=== PATIENT | female | born 1985 | race Caucasian/White ===

== ENCOUNTER → 2021-04-13 | Outpatient (CLI) | payer OTHER ==
[2021-04-13 16:00] LABS: BASO # 0.1 10^3/uL (0.0-0.2); BASO % 0.9 % (0.0-1.0); EOS # 0.3 10^3/uL (0.0-0.5); EOS % 3.8 % (0.0-3.0); HEMATOCRIT 41.8 % (36.0-47.0); HEMOGLOBIN 13.4 g/dl (12.0-15.5); LYMPH # 1.8 10^3/uL (1.5-5.0); LYMPH % 26.2 % (24.0-44.0); MEAN CORPUSCULAR HEMOGLOBIN 28.9 pg (27.0-33.0); MEAN CORPUSCULAR HGB CONC 32.1 g/dl (32.0-36.5); MEAN CORPUSCULAR VOLUME 90.3 fl (80.0-96.0); MONO # 0.5 10^3/uL (0.0-0.8); MONO % 7.7 % (2.0-8.0); NEUTROPHILS # 4.2 10^3/uL (1.5-8.5); NEUTROPHILS % 61.1 % (36.0-66.0); PLATELET COUNT, AUTOMATED 202 10^3/uL (150-450); RED BLOOD COUNT 4.63 10^6/uL (4.00-5.40); WHITE BLOOD COUNT 6.9 10^3/uL (4.0-10.0)
[2021-04-13 16:35] LABS: ALBUMIN 4.3 GM/DL (3.2-5.2); ALT/SGPT 26 U/L (12-78); BILIRUBIN,TOTAL 0.3 MG/DL (0.2-1.0); BLOOD UREA NITROGEN 11 MG/DL (7-18); CALCIUM LEVEL 9.9 MG/DL (8.5-10.1); CARBON DIOXIDE LEVEL 28 MEQ/L (21-32); CHLORIDE LEVEL 108 MEQ/L (98-107); CREATININE FOR GFR 0.75 MG/DL (0.55-1.30); FREE T4 1.09 NG/DL (0.76-1.46); GLOMERULAR FILTRATION RATE > 60.0 (>60); GLUCOSE, FASTING 107 MG/DL (70-100); POTASSIUM SERUM 4.2 MEQ/L (3.5-5.1); SODIUM LEVEL 142 MEQ/L (136-145); TOTAL PROTEIN 7.6 GM/DL (6.4-8.2)
--- NOTE | 2021-04-13 17:29 | REP ---
INDICATION: COCCYX PAIN COMPARISON: None. TECHNIQUE: AP and lateral views of the sacrum and coccyx. FINDINGS: Lateral view demonstrates acute angulation at the level of the distal coccyx which is nonspecific and should be correlated with point of tenderness. Findings may represent old injury. The remainder of the examination appears relatively normal/age-appropriate. IMPRESSION: Acute angulation at the distal coccyx may represent subtle subluxation/injury.. <Electronically signed by Kelton Groves > 04/13/21 [id number]
== END ==
LOC: M WUC 10:37
PROVIDERS: ATTEND Student in an Organized Health Care Education/Training Program
DX: Z00.00 Encounter for general adult medical examination without abnormal findings (principal); M53.3 Sacrococcygeal disorders, not elsewhere classified; R53.83 Other fatigue

== ENCOUNTER → 2021-05-15 | Outpatient (CLI) | payer OTHER ==
--- NOTE | 2021-05-17 08:37 | REP ---
INDICATION: SACROCOCCYGEAL DISORDER, NOT CLASSIFIED. COMPARISON: Radiographs 04/13/2021. TECHNIQUE: Multiple sequences of the sacrum and coccyx in the axial, coronal and sagittal plane. FINDINGS: There is no evidence of bone marrow edema. There is no occult fracture. There is no evidence of sacroiliitis. No bone lesion is seen. Within the visualized pelvis there is no evidence of adenopathy. The uterus is retroverted with a length of approximately 8 cm. The endometrial thickness is approximately 8 mm. The junctional zone appears intact. There is a cystic structure of the left ovary having a maximum diameter of 2.7 cm. There is trace free fluid adjacent to the left ovary. IMPRESSION: No MRI abnormality of the sacrum or coccyx. Small left ovarian cyst measures 2.7 cm with trace adjacent free fluid. <Electronically signed by Richard Sánchez > 05/17/21 [id number]
== END ==
LOC: M RAD 18:05
PROVIDERS: ATTEND Orthopaedic Surgery
DX: M53.3 Sacrococcygeal disorders, not elsewhere classified (principal); N83.202 Unspecified ovarian cyst, left side

== ENCOUNTER → 2021-10-12 | Outpatient (CLI) | payer OTHER | LOC: M PAIN 13:00 | PROVIDERS: ATTEND Anesthesiology | DX: M53.3 Sacrococcygeal disorders, not elsewhere classified (principal); S39.92XD Unspecified injury of lower back, subsequent encounter; J45.909 Unspecified asthma, uncomplicated; Z79.899 Other long term (current) drug therapy ==

== ENCOUNTER → 2022-05-24 | Outpatient (CLI) | payer OTHER | LOC: M SOG 10:23 | PROVIDERS: ATTEND Orthopaedic Surgery | DX: M25.511 Pain in right shoulder (principal); M25.561 Pain in right knee; M25.562 Pain in left knee ==

== ENCOUNTER → 2022-07-19 | Outpatient (REF) | payer OTHER ==
[2022-07-19 19:47] LABS: RSV AMPLIFICATION NEGATIVE (NEGATIVE)
== END ==
LOC: M SFHCPLAZ 17:07
PROVIDERS: ATTEND Physician Assistant
DX: J40 Bronchitis, not specified as acute or chronic (principal)

== ENCOUNTER → 2022-09-27 | Outpatient (REF) | payer OTHER | LOC: M SFHCLERA 17:12 | PROVIDERS: ATTEND Student in an Organized Health Care Education/Training Program | DX: J06.9 Acute upper respiratory infection, unspecified (principal) | CPT/HCPCS: 87081; 87428; 87880; G0463 ==

== ENCOUNTER → 2022-10-13 | Outpatient (CLI) | payer OTHER | LOC: M RAD 10:43 | PROVIDERS: ATTEND Orthopaedic Surgery Hand Surgery | DX: M25.561 Pain in right knee (principal); M25.562 Pain in left knee ==

== ENCOUNTER 2022-12-13 18:46 | Emergency (ER) | payer OTHER ==
[~2022-12-13] VITALS: Ht 165.1 cm; Wt 76.7 kg
[2022-12-13] MEDS ORDERED: IBUP-1720 PO (18:54)
[2022-12-13] MEDS ORDERED: KETOROLAC 60MG 2ML VIAL IM ONE (21:40)
[2022-12-13] MEDS ORDERED: UNRESOLVED CLARIFICATION ENTRY XX STA (21:48)
[2022-12-13] MEDS ORDERED: METH-1164 PO (23:52)
[2022-12-13] MEDS ORDERED: MEDR4PAK PO (23:52)
[2022-12-13] MEDS ORDERED: NITROFURANTOIN (MACROBID) 100 MG CAP PO ONE (23:55)
[2022-12-13] MEDS ORDERED: MACR100C43 PO (23:56)
[2022-12-14 00:05] VITALS: BP 124/74
== END 2022-12-14 00:12 | disposition home or self-care (01) ==
LOC: M ED 18:46
DX: M54.50 Low back pain, unspecified (principal); N39.0 Urinary tract infection, site not specified
CPT/HCPCS: 72110; 81001; 84702; 87086; 96372; 99283; J1885